=== PATIENT | female | born 1975 | race African-American/Black ===

== ENCOUNTER 2024-08-06 01:51 | Observation (INO) ==
[2024-08-06] MEDS ORDERED: ONDANSETRON HCL/PF 4 MG/2 ML VIAL ONE (02:54)
[2024-08-06] MEDS ORDERED: MORPHINE SULFATE 4 MG/ML CARTRIDGE ONE (02:54)
[2024-08-06 05:36] LABS: PH BODY FLUID EXCP BLOOD N (5 - 9); Urine Appearance CLOUDY (CLEAR); Urine Blood 3+ (NEG - TRACE); Urine Color YELLOW (STRAW/YELL.); Urine Urobilinogen Normal (NORMAL)
[2024-08-06 05:37] LABS: Ur. Squamous Epithelial Cell Many (Negative); Urine Amorphous Sediment Few (Negative)
[2024-08-06 05:38] LABS: Basophils%(Percent) Auto 0.2 (0.1-0.85); Eosinophils%(Percent) Auto 0.4 % (0.4-2.8); Granulocytes % - Auto 78.4 % (47.8-71.3); Granulocytes#(Absolute)- Auto 10.6 (2.3-6.0); Hematocrit 49.2 % (35.9-46.7); Mean Corpuscular Volume 85.4 fl (81.0-93.7); Monocytes %(Percent)- Auto 8.9 % (3.6-9.8); Platelet Count 181 K/uL (152-353); White Blood Count 13.5 K/uL (4.3-9.3)
[2024-08-06 05:39] LABS: Monocytes #(Absolute)- Auto 1.2 (1.1-3.1)
--- NOTE | 2024-08-06 06:11 | Emergency Department Note ---
HPI - Abdominal Pain General Chief Complaint: Abdominal Pain Stated Complaint: NAUSEA AND VOMITING/ DIARRHEA Time Seen by Provider: 08/06/24 02:00 Source: patient Mode of arrival: walk-in Limitations: no limitations History of Present Illness HPI narrative: 49 Y/O Female with a PMHX of HTN, Crohn's disease, Fibromyalgia, presents to the ER she reports at around 1 AM this morning for abdominal pain with N/V/D - last BM was at 0200, non bloody. Last vomiting episose, pateint states was just prior to arrival. MD elicited complaint: abdominal pain Pertinent past history: none Onset (ago): day(s) (2) Pain Consistency: constant Location: diffuse Severity: moderate Quality: cramping, aching and sharp Radiation: none Migration to: no migration Exacerbating factors: vomiting Relieving factors: nothing Associated symptoms: nausea, vomiting and diarrhea Related Data Previous Rx's Medication Instructions Recorded potassium chloride 20 mEq/15 mL 20 meq (15 mL) PO DAILY low 01/21/24 oral liquid potassium 5 days #75 mL Allergies Allergy/AdvReac Type Severity Reaction Status Date / Time No Known Drug Allergies Allergy Verified 08/06/24 05:38 Review of Systems Status of ROS 10 or more systems reviewed and unremark able except as noted in history and below Constitutional Denies: fever or chills Eyes Denies: change in vision, blurry vision or blind spots Respiratory Denies: shortness of breath, cough or wheezing Gastrointestinal Reports: abdominal pain, nausea, vomiting and diarrhea Genitourinary Denies: painful urination, urinary frequency or urinary urgency Musculoskeletal Denies: back pain Neurological Denies: headache Psychiatric Denies: anxiety [facility] Medical History Fistula of intestine, excluding rectum and anus Social History Smoking status: never smoker Within the past year, how often did you have a drink containing alcohol: never Within the past year, how many standard drinks containing alcohol did you have on a typical day: 1 or 2 Within the past year, how often did you have six or more drinks on one occasion: never Total score: 0 Score interpretation: A score less than 3 is consistent with normal alcohol consumption. Exam Constitutional: normal general appearance and alert Vital Signs - 24 hr 08/06/24 02:00 08/06/24 02:35 08/06/24 04:00 Temperature 98.2 F Pulse Rate 124 H 127 H 113 H Respiratory Rate 20 16 Blood Pressure 121/78 120/76 Pulse Oximetry 98 98 98 Oxygen Delivery Me thod Room Air Room Air Room Air 08/06/24 05:10 08/06/24 06:30 08/06/24 07:00 Temperature Pulse Rate 121 H 97 H 115 H Respiratory Rate 18 18 18 Blood Pressure 125/70 117/77 124/89 Pulse Oximetry 97 97 94 L Oxygen Delivery Me thod Room Air Room Air Room Air Eyes: PERRL and EOMs intact bilaterally Respiratory: breath sounds equal bilaterally and normal respiratory effort Cardiovascular: regular rhythm noted (Tachy) Gastrointestinal: abdomen soft to palpation hyperactive BS, tender to palpation, generalized Extremities: normal to inspection, normal to palpation, no tenderness and full ROM Neurology: gait normal, speech normal and coordination normal Psychiatry: oriented x3, cooperative and memory normal Skin: skin color normal Course Reevaluation(s) Reevaluation #1: Patient continues to report abdominal pain with nausea. Morphine 2 mg with Zofran 4 mg ordered NS 1 liter ordered Potassium is noted 3.0 - repleted, 40 meq PO and 20 mEq IV ordered Time: 06:55 Reevaluation #2: 0700 - Laurie, with hospital administration, UR called via cell phone for admis crys permission - agrees to admission 704 - Called Dr. Landaverde via cell phone number provided - OK for admission, will assume care of this patient Vital Signs Vital signs: Vital Signs Temperature 98.2 F 08/06/24 02:00 Pulse Rate 124 H 08/06/24 02:00 Respiratory Rate 20 08/06/24 02:00 Pulse Oximetry 98 08/06/24 02:00 Oxygen Delivery Method Room Air 08/06/24 02:00 Temperature 98.2 F 08/06/24 02:00 Pulse Rate 115 H 08/06/24 07:00 Respiratory Rate 18 08/06/24 07:00 Blood Pressure 124/89 08/06/24 07:00 Pulse Oximetry 94 L 08/06/24 07:00 Oxygen Delivery Method Room Air 08/06/24 07:00 MDM - Abdominal Pain Differential Diagnosis Differential diagnosis: Likely abdominal pain, gastroenteritis and other Lab Data Attestation: I reviewed the patient's lab results. Labs: Lab Results 08/06/24 Range/Units 03:20 WBC 13.5 H (4.3-9.3) K/uL RBC 5.8 H (4.00-5.50) M/uL Hgb 16.6 H (12.5-15.8) gm/dL Hct 49.2 H (35.9-46.7) % MCV 85.4 (81.0-93.7) fl MCH 28.8 (27.6-32.2) pg MCHC 33.7 (33.1-35.3) g/dl RDW 15.6 H (11.4-14.2) % Plt Count 181 (152-353) K/uL MPV 9.5 (6.9-10.8) fl Gran % 78.4 H (47.8-71.3) % Lymph % (Auto) 12.1 L (20.0-43.0) % [place] % (Auto) 8.9 (3.6-9.8) % Eos % (Auto) 0.4 (0.4-2.8) % Baso % (Auto) 0.2 (0.1-0.85) Lymph # (Auto) 1.6 (1.1-3.1) [place] # (Auto) 1.2 (1.1-3.1) Eos # (Auto) 0.0 (0.0-0.2) Baso # (Auto) 0.0 (0.0-0.1) Absolute Gran (auto) 10.6 H (2.3-6.0) Sodium 132 L (136-145) mmol/L Potassium 3.0 L (3.6-5.2) mmol/L Chloride 97.0 L (98-107) mmol/L Carbon Dioxide 25 (21-32) mmol/L Anion Gap 10.0 (4-14) mEq/L BUN 11 (7-18) mg/dL Creatinine 0.8 (0.6-1.3) mg/dL Estimated GFR 89.7 (>59.9) Glucose 133 H (70-110) mg/dL Calcium 9.2 (8.5-10.1) mg/dL Total Bilirubin 0.68 (0.0-1.0) mg/dL AST 98 H (15-37) U/L ALT 102 H (30-65) U/L Alkaline Phosphatase 74 (50-136) U/L Total Protein 8.8 H (6.4-8.2) g/dL Albumin 4.0 (3.4-5.0) g/dL Lipase 80.0 H (16.0-77.0) U/L Urine Color Yellow (STRAW/YELL.) Urine Appearance Cloudy (CLEAR) Ur Specific [place] 1.020 (1.001-1.035) Urine Protein Negative (NEGATIVE) Urine Glucose (UA) Normal (NORMAL) Urine Ketones Negative (NEGATIVE) Urine Occult Blood 3+ (NEG - TRACE) Urine Nitrite Negative (NEGATIVE) Urine Bilirubin Negative (NEGATIVE) Urine Urobilinogen Normal (NORMAL) Ur Leukocyte Esterase Negative (NEGATIVE) Urine RBC 5 - 10 (0 - 5) Urine WBC 5 - 10 ( 0 - 5) Ur Epithelial Cells Many (Few/HPF) Ur Squamous Epith Cells Many (Negative) Amorphous Sediment Few (Negative) Urine Bacteria Few (Negative) Fluid pH N (5 - 9) Imaging Data Imaging ordered: Abdominal x-ray Radiologist's impression: IMPRESSION Possible entero colitis that is probably infectious Lobulated liver suspicious for cirrhosis Ventral midline intraumbilical hernia Bilateral adnexal cysts an US recommend to exclude complex cyst needing F/U Discharge Plan Discharge Patient Disposition: Admitted As Observation Condition: Stable Clinical Impression: Crohn's disease, Colitis, infectious Time of Disposition: 07:10
[2024-08-06] MEDS ORDERED: POTASSIUM CHLORIDE IV ONE (06:22)
[2024-08-06] MEDS ORDERED: [UNRECOGNIZED DRUG - OTHER] IV ONE (06:22)
[2024-08-06] MEDS: 0.9 % SODIUM CHLORIDE 1000 ML 1,000 ML IV ONE (06:24)
[2024-08-06] MEDS: POTASSIUM CL 20 MEQ/100 ML SOL 20 MEQ/100 ML PIGGYBACK IV ONE (06:25)
[2024-08-06] MEDS: ONDANSETRON HCL/PF 4 MG/2 ML VIAL IVP ONE (06:53)
[2024-08-06] MEDS: MORPHINE SULFATE 2 MG/ML CARTRIDGE IV ONE (06:54)
[2024-08-06] MEDS: PIPERACILLIN/TAZOBACTAM 3.375 3.375 GM in 0.9 % SODIUM CHLORIDE MB+ 100 ML IV SCH (07:15)
[2024-08-06] MEDS ORDERED: PIPERACILLIN SODIUM/TAZOBACTAM 3.375 GM VIAL IV ONE (07:15)
[2024-08-06] MEDS ORDERED: 0.9 % SODIUM CHLORIDE MB+ 100 ML IV ONE (07:15)
[2024-08-06] MEDS: 0.9 % SODIUM CHLORIDE 1000 ML 1,000 ML IV SCH (09:21)
[2024-08-06] MEDS: POTASSIUM CL 40 MEQ/30 ML 40 MEQ/30 ML LIQUID PO SCH (09:21)
--- NOTE | 2024-08-06 11:45 | History & Physical Report ---
H&P: HPI History of Present Illness Chief complaint: colitis Narrative: 49 Y/O Female with a PMHX of HTN, Crohn's disease, Fibromyalgia, presented to the ER for abdominal pain with N/V/D - last BM was at 0200, non bloody. Last vomiting episode, patient states was just prior to arrival. Tested found patient to have colitis and in need of further treatment than ED could provide. Patient was admitted for pain control, IV antibiotics, and IV medications for nausea, IV fluids, and further testing. Review of Systems Status of ROS 10 or more systems reviewed and unremark able except as noted in history and below Constitutional Denies: fever or chills Eyes Denies: change in vision, blurry vision or blind spots Cardiovascular Denies: shortness of breath with exertion Respiratory Denies: shortness of breath, cough or wheezing Gastrointestinal Reports: abdominal pain, nausea, vomiting and diarrhea Genitourinary Denies: painful urination, urinary frequency or urinary urgency Musculoskeletal Denies: back pain Neurological Denies: headache Psychiatric Denies: anxiety Allergic/Immunologic Denies: wheezing PFSH PFSH Medical History Fistula of intestine, excluding rectum and anus Social History Smoking status: never smoker Within the past year, how often did you have a drink containing alcohol: never Within the past year, how many standard drinks containing alcohol did you have on a typical day: 1 or 2 Within the past year, how often did you have six or more drinks on one occasion: never Total score: 0 Score interpretation: A score less than 3 is consistent with normal alcohol consumption. Meds Home Medications and Allergies Home Medications Medication Instructions Recorded Confirmed Type potassium chloride 20 mEq/15 mL 20 meq (15 mL) PO DAILY low 01/21/24 Rx oral liquid potassium 5 days #75 mL Allergies Allergy/AdvReac Type Severity Reaction Status Date / Time No Known Drug Allergies Allergy Verified 08/06/24 05:38 Exam Constitutional: normal general appearance, no apparent distress, abnormal body habitus, no limitations and alert Vital Signs - 24 hr 08/06/24 02:00 08/06/24 02:35 08/06/24 04:00 Temperature 98.2 F Pulse Rate 124 H 127 H 113 H Respiratory Rate 20 16 Blood Pressure 121/78 120/76 Pulse Oximetry 98 98 98 Oxygen Delivery Me thod Room Air Room Air Room Air 08/06/24 05:10 08/06/24 06:30 08/06/24 07:00 Temperature Pulse Rate 121 H 97 H 115 H Respiratory Rate 18 18 18 Blood Pressure 125/70 117/77 124/89 Pulse Oximetry 97 97 94 L Oxygen Delivery Ne thod Room Air Room Air Room Air 08/06/24 08:00 Temperature 98.6 F Pulse Rate 111 H Respiratory Rate 16 Blood Pressure 134/78 Pulse Oximetry 94 L Oxygen Delivery Ne thod HENMT: normocephalic, head/scalp atraumatic, hearing grossly normal bilaterally, external ears normal, EACs normal, TMs normal bilaterally, nasal mucous membranes normal, external nose normal, oral mucous membranes normal and oropharynx normal Eyes: PERRL, EOMs intact bilaterally, conjunctivae normal, no scleral icterus and no papilledema Chest: inspection of chest normal Respiratory: breath sounds equal bilaterally, normal respiratory effort, clear to auscultation bilaterally, no wheezes and no rales Cardiovascular: normal heart rate noted, regular rhythm noted, no gallop, no rub, no murmur, no JVD and no clicks Gastrointestinal: abdomen normal to inspection, abdomen soft to palpation, tender to palpation, nondistended and abnormal bowel sounds noted (hyperactive bowel sounds) Genitourinary: no CVA tenderness Extremities: normal to inspection, normal to palpation, no tenderness and full ROM Neurology: no movement abnormality noted, no focal motor deficit noted, deep tendon reflexes 2+ bilaterally, gait normal and speech normal Psychiatry: mental status grossly normal, oriented x3, thought process normal and cooperative Skin: skin color normal, no rash, no lesions, no ecchymosis noted and no wounds Assessment and Plan Assessment and Plan (1) Colitis: Code(s): K52.9 - Noninfective gastroenteritis and colitis, unspecified (2) Crohn's disease: Code(s): K50.90 - Crohn's disease, unspecified, without complications (3) Abdominal pain: Code(s): R10.9 - Unspecified abdominal pain (4) Nausea: Code(s): R11.0 - Nausea (5) Hypokalemia: Code(s): E87.6 - Hypokalemia (6) Fibromyalgia: Code(s): M79.7 - Fibromyalgia (7) Hypertension: Code(s): I10 - Essential (primary) hypertension Plan NS @ 125ml/hr Zosyn IV Q 6 Potassium 20 meq daily MS for pain Zofran for nausea Bowel rest unless patient gets really hungry then may try clear liquids Stool Cultures Results Labs Labs: CBC WBC 13.5 K/uL (4.3-9.3) H 08/06/24 03:20 RBC 5.8 M/uL (4.00-5.50) H 08/06/24 03:20 Hgb 16.6 gm/dL (12.5-15.8) H 08/06/24 03:20 Hct 49.2 % (35.9-46.7) H 08/06/24 03:20 MCV 85.4 fl (81.0-93.7) 08/06/24 03:20 MCH 28.8 pg (27.6-32.2) 08/06/24 03:20 MCHC 33.7 g/dl (33.1-35.3) 08/06/24 03:20 RDW 15.6 % (11.4-14.2) H 08/06/24 03:20 Plt Count 181 K/uL (152-353) 08/06/24 03:20 MPV 9.5 fl (6.9-10.8) 08/06/24 03:20 Gran % 78.4 % (47.8-71.3) H 08/06/24 03:20 Lymph % (Auto) 12.1 % (20.0-43.0) L 08/06/24 03:20 [place] % (Auto) 8.9 % (3.6-9.8) 08/06/24 03:20 Eos % (Auto) 0.4 % (0.4-2.8) 08/06/24 03:20 Baso % (Auto) 0.2 (0.1-0.85) 08/06/24 03:20 Lymph # (Auto) 1.6 (1.1-3.1) 08/06/24 03:20 [place] # (Auto) 1.2 (1.1-3.1) 08/06/24 03:20 Eos # (Auto) 0.0 (0.0-0.2) 08/06/24 03:20 Baso # (Auto) 0.0 (0.0-0.1) 08/06/24 03:20 Absolute Gran (auto) 10.6 (2.3-6.0) H 08/06/24 03:20 BMP Sodium 132 mmol/L (136-145) L 08/06/24 03:20 Potassium 3.0 mmol/L (3.6-5.2) L 08/06/24 03:20 Chloride 97.0 mmol/L (98-107) L 08/06/24 03:20 Carbon Dioxide 25 mmol/L (21-32) 08/06/24 03:20 Anion Gap 10.0 mEq/L (4-14) 08/06/24 03:20 BUN 11 mg/dL (7-18) 08/06/24 03:20 Creatinine 0.8 mg/dL (0.6-1.3) 08/06/24 03:20 Estimated GFR 89.7 (>59.9) 08/06/24 03:20 Glucose 133 mg/dL (70-110) H 08/06/24 03:20 Calcium 9.2 mg/dL (8.5-10.1) 08/06/24 03:20 Total Bilirubin 0.68 mg/dL (0.0-1.0) 08/06/24 03:20 AST 98 U/L (15-37) H 08/06/24 03:20 ALT 102 U/L (30-65) H 08/06/24 03:20 Alkaline Phosphatase 74 U/L (50-136) 08/06/24 03:20 Total Protein 8.8 g/dL (6.4-8.2) H 08/06/24 03:20 Albumin 4.0 g/dL (3.4-5.0) 08/06/24 03:20 Liver Function Total Bilirubin 0.68 mg/dL (0.0-1.0) 08/06/24 03:20 AST 98 U/L (15-37) H 08/06/24 03:20 ALT 102 U/L (30-65) H 08/06/24 03:20 Alkaline Phosphatase 74 U/L (50-136) 08/06/24 03:20 Total Protein 8.8 g/dL (6.4-8.2) H 08/06/24 03:20 Albumin 4.0 g/dL (3.4-5.0) 08/06/24 03:20 Urine Urine Color Yellow (STRAW/YELL.) 08/06/24 03:20 Urine Appearance Cloudy (CLEAR) 08/06/24 03:20 Ur Specific [place] 1.020 (1.001-1.035) 08/06/24 03:20 Urine Protein Negative (NEGATIVE) 08/06/24 03:20 Urine Glucose (UA) Normal (NORMAL) 08/06/24 03:20 Urine Ketones Negative (NEGATIVE) 08/06/24 03:20 Urine Occult Blood 3+ (NEG - TRACE) 08/06/24 03:20 Urine Nitrite Negative (NEGATIVE) 08/06/24 03:20 Urine Bilirubin Negative (NEGATIVE) 08/06/24 03:20 Urine Urobilinogen Normal (NORMAL) 08/06/24 03:20 Ur Leukocyte Esterase Negative (NEGATIVE) 08/06/24 03:20
[2024-08-06] MEDS: MORPHINE SULFATE 2 MG/ML CARTRIDGE IV PRN (12:13)
[2024-08-06] MEDS ORDERED: PROMETHAZINE HCL 12.5 MG in 0.9 % SODIUM CHLORIDE 50 ML IV PRN (20:25)
[2024-08-06] MEDS: ONDANSETRON HCL/PF 4 MG/2 ML VIAL IVP PRN (20:45)
[2024-08-07] MEDS ORDERED: CYCLOBENZAPRINE HCL 10 MG TABLET PO PRN (10:09)
[2024-08-07] MEDS ORDERED: lisinopriL 10 MG TABLET PO SCH (10:15)
[2024-08-07 10:50] LABS: Basophils%(Percent) Auto 0.5 (0.1-0.85); Eosinophils#(Absolute)Auto 0.1 (0.0-0.2); Granulocytes % - Auto 41.2 % (47.8-71.3); Granulocytes#(Absolute)- Auto 3.5 (2.3-6.0); Hematocrit 39.9 % (35.9-46.7); Mean Corpuscular Volume 88.6 fl (81.0-93.7); Monocytes #(Absolute)- Auto 0.5 (1.1-3.1); Monocytes %(Percent)- Auto 6.3 % (3.6-9.8); Platelet Count 124 K/uL (152-353); White Blood Count 8.4 K/uL (4.3-9.3)
[2024-08-07 10:59] LABS: Potassium 3.6 mmol/L (3.6-5.2)
[2024-08-07] MEDS: GABAPENTIN 300 MG CAPSULE PO SCH (11:11)
[2024-08-07] MEDS: hydroCHLOROthiazide 25 MG TABLET PO SCH (11:12)
[2024-08-07] MEDS: lisinopriL 10 MG TABLET PO SCH (11:12)
--- NOTE | 2024-08-07 12:37 | Progress Note ---
Progress Note: Subjective Subjective Interval history: Patient was lying in bed upon rounds this morning. No overnight events reported. Patient reports that pain medication is numbing the pain but does not get rid of it. She did have several bowel movements of diarrhea yesterday and nursing was able to collect the stool studies. Exam Constitutional: normal general appearance, no apparent distress and alert Vital Signs - 24 hr 08/06/24 16:00 08/06/24 20:00 08/07/24 00:00 Temperature 98.4 F 98.1 F 98.2 F Pulse Rate [Left C arotid] 100 H 98 H 91 H Respiratory Rate 20 17 17 Blood Pressure [Ri ght Arm] 125/68 119/77 124/70 Pulse Oximetry 97 96 97 Oxygen Delivery Me thod Room Air Room Air Room Air 08/07/24 04:00 08/07/24 07:28 08/07/24 12:00 Temperature 98.4 F 97.7 F 97.7 F Pulse Rate [Left C arotid] 89 85 86 Respiratory Rate 17 20 20 Blood Pressure [Ri ght Arm] 136/75 122/88 127/66 Pulse Oximetry 96 95 96 Oxygen Delivery Me thod Room Air Room Air Room Air HENMT: normocephalic, head/scalp atraumatic, hearing grossly normal bilaterally, external ears normal, EACs normal, TMs normal bilaterally, nasal mucous membranes normal, external nose normal, oral mucous membranes normal and oropharynx normal Eyes: PERRL, EOMs intact bilaterally and conjunctivae normal Chest: inspection of chest normal Respiratory: breath sounds equal bilaterally, normal respiratory effort, clear to auscultation bilaterally, no wheezes and no rales Cardiovascular: normal heart rate noted, regular rhythm noted, no gallop and no rub Gastrointestinal: abdomen normal to inspection, abdomen soft to palpation, tender to palpation, tender to percussion, nondistended and abnormal bowel sounds noted Genitourinary: no CVA tenderness Extremities: normal to inspection, normal to palpation, no tenderness and full ROM Neurology: no movement abnormality noted, no focal motor deficit noted, speech normal and coordination normal Psychiatry: mental status grossly normal, oriented x3, thought process normal and cooperative Skin: skin color normal, no rash, no lesions, no ecchymosis noted, no wounds and no lacerations Progress Note: Objective Labs Labs: CBC WBC 8.4 K/uL (4.3-9.3) 08/07/24 10:43 RBC 4.5 M/uL (4.00-5.50) 08/07/24 10:43 Hgb 13.1 gm/dL (12.5-15.8) 08/07/24 10:43 Hct 39.9 % (35.9-46.7) 08/07/24 10:43 MCV 88.6 fl (81.0-93.7) 08/07/24 10:43 MCH 29.2 pg (27.6-32.2) 08/07/24 10:43 MCHC 32.9 g/dl (33.1-35.3) L 08/07/24 10:43 RDW 15.0 % (11.4-14.2) H 08/07/24 10:43 Plt Count 124 K/uL (152-353) L 08/07/24 10:43 MPV 9.2 fl (6.9-10.8) 08/07/24 10:43 Gran % 41.2 % (47.8-71.3) L 08/07/24 10:43 Lymph % (Auto) 51.0 % (20.0-43.0) H 08/07/24 10:43 [place] % (Auto) 6.3 % (3.6-9.8) 08/07/24 10:43 Eos % (Auto) 1.0 % (0.4-2.8) 08/07/24 10:43 Baso % (Auto) 0.5 (0.1-0.85) 08/07/24 10:43 Lymph # (Auto) 4.3 (1.1-3.1) H 08/07/24 10:43 [place] # (Auto) 0.5 (1.1-3.1) L 08/07/24 10:43 Eos # (Auto) 0.1 (0.0-0.2) 08/07/24 10:43 Baso # (Auto) 0.0 (0.0-0.1) 08/07/24 10:43 Absolute Gran (auto) 3.5 (2.3-6.0) 08/07/24 10:43 BMP Sodium 135 mmol/L (136-145) L 08/07/24 10:43 Potassium 3.6 mmol/L (3.6-5.2) 08/07/24 10:43 Chloride 103.0 mmol/L (98-107) 08/07/24 10:43 Carbon Dioxide 25 mmol/L (21-32) 08/07/24 10:43 Anion Gap 7.0 mEq/L (4-14) 08/07/24 10:43 BUN 11 mg/dL (7-18) 08/07/24 10:43 Creatinine 0.8 mg/dL (0.6-1.3) 08/07/24 10:43 Estimated GFR 89.7 (>59.9) 08/07/24 10:43 Glucose 78 mg/dL (70-110) 08/07/24 10:43 Calcium 7.0 mg/dL (8.5-10.1) L 08/07/24 10:43 Total Bilirubin 0.63 mg/dL (0.0-1.0) 08/07/24 10:43 AST 68 U/L (15-37) H 08/07/24 10:43 ALT 75 U/L (30-65) H 08/07/24 10:43 Alkaline Phosphatase 53 U/L (50-136) 08/07/24 10:43 Total Protein 7.1 g/dL (6.4-8.2) 08/07/24 10:43 Albumin 3.1 g/dL (3.4-5.0) L 08/07/24 10:43 Liver Function Total Bilirubin 0.63 mg/dL (0.0-1.0) 08/07/24 10:43 AST 68 U/L (15-37) H 08/07/24 10:43 ALT 75 U/L (30-65) H 08/07/24 10:43 Alkaline Phosphatase 53 U/L (50-136) 08/07/24 10:43 Total Protein 7.1 g/dL (6.4-8.2) 08/07/24 10:43 Albumin 3.1 g/dL (3.4-5.0) L 08/07/24 10:43 Urine Urine Color Yellow (STRAW/YELL.) 08/06/24 03:20 Urine Appearance Cloudy (CLEAR) 08/06/24 03:20 Ur Specific [place] 1.020 (1.001-1.035) 08/06/24 03:20 Urine Protein Negative (NEGATIVE) 08/06/24 03:20 Urine Glucose (UA) Normal (NORMAL) 08/06/24 03:20 Urine Ketones Negative (NEGATIVE) 08/06/24 03:20 Urine Occult Blood 3+ (NEG - TRACE) 08/06/24 03:20 Urine Nitrite Negative (NEGATIVE) 08/06/24 03:20 Urine Bilirubin Negative (NEGATIVE) 08/06/24 03:20 Urine Urobilinogen Normal (NORMAL) 08/06/24 03:20 Ur Leukocyte Esterase Negative (NEGATIVE) 08/06/24 03:20 Progress Note: A&P Assessment and Plan (1) Colitis: (2) Crohn's disease: (3) Abdominal pain: (4) Nausea: (5) Hypokalemia: (6) Fibromyalgia: (7) Hypertension: Plan NS @ 125ml/hr Zosyn IV Q 6 Potassium 20 meq daily MS for pain Zofran for nausea Advance as tolerated (Clear liquids for lunch) Stool Cultures-follow (collected yesterday) Fall Risk Details Vázquez Fall Scale Risk Level: Moderate Fall Risk Current Medications: Current Medications Cyclobenzaprine HCl (Cyclobenzaprine Hcl 10 Mg Tablet) 10 mg PO Q12H PRN PRN Reason: pain Gabapentin (Gabapentin 300 Mg Capsule) 300 mg PO .COMPLEX [facility] Last Admin: 08/07/24 11:11 Dose: 300 mg Hydrochlorothiazide (Hydrochlorothiazide 25 Mg Tablet) 12.5 mg PO DAILY [facility] Last Admin: 08/07/24 11:12 Dose: 12.5 mg Piperacillin Sod/Tazobactam (Sod 3.375 gm/ Sodium Chloride) 100 mls @ 200 mls/hr IV Q6H [facility] Last Infusion: 08/07/24 07:54 Dose: Infused Sodium Chloride (Sodium Chloride) 1,000 mls @ 125 mls/hr IV CONT [facility] Last Admin: 08/07/24 03:13 Dose: 125 mls/hr Promethazine HCl 12.5 mg/ (Sodium Chloride) 50.5 mls @ 200 mls/hr IV Q8H PRN PRN Reason: Nausea And Vomiting Lisinopril (Lisinopril 10 Mg Tablet) 10 mg PO NIGHTLY [facility] Lisinopril (Lisinopril 10 Mg Tablet) 10 mg PO DAILY [facility] Last Admin: 08/07/24 11:12 Dose: 10 mg Morphine Sulfate (Morphine Sulfate 2 Mg/Ml Cartridge) 1 mg IV Q4H PRN PRN Reason: abdominal pain Last Admin: 08/07/24 11:11 Dose: 1 mg Ondansetron HCl (Ondansetron Hcl/Pf 4 Mg/2 Ml Vial) 4 mg IVP Q6H PRN PRN Reason: Nausea And Vomiting Last Admin: 08/07/24 03:14 Dose: 4 mg Potassium Chloride (Potassium Cl 40 Meq/30 Ml 40 Meq/30 Ml Liquid) 20 meq PO DAILY [facility] Last Admin: 08/07/24 08:33 Dose: 20 meq Time Spent With Patient Time: Total time spent is greater than 50% in coordination of care (as documented) at patient's floor/unit and/or counseling patient:
[2024-08-07] MEDS: LISINOPRIL HYDROCHLOROTHIAZIDE PO SCH (13:45)
[2024-08-08 05:05] LABS: Basophils%(Percent) Auto 0.6 (0.1-0.85); Eosinophils#(Absolute)Auto 0.1 (0.0-0.2); Eosinophils%(Percent) Auto 1.4 % (0.4-2.8); Granulocytes % - Auto 35.5 % (47.8-71.3); Granulocytes#(Absolute)- Auto 2.7 (2.3-6.0); Hematocrit 38.6 % (35.9-46.7); Mean Corpuscular Volume 88.3 fl (81.0-93.7); Monocytes #(Absolute)- Auto 0.6 (1.1-3.1); Monocytes %(Percent)- Auto 7.4 % (3.6-9.8); Platelet Count 115 K/uL (152-353); White Blood Count 7.5 K/uL (4.3-9.3)
[2024-08-08 05:40] LABS: Potassium 2.8 mmol/L (3.6-5.2)
[2024-08-08] MEDS ORDERED: POTASSIUM CHLORIDE IN WATER 10 MEQ/100 ML PIGGYBACK IV SCH (09:45)
[2024-08-08] MEDS: POTASSIUM CHLORIDE 20 MEQ in 0.9 % SODIUM CHLORIDE 250 ML IV ONE (10:13)
[2024-08-08] MEDS: POTASSIUM CHLORIDE 20 MEQ TAB.ER.PRT PO ONE ×2 (10:13→13:05)
[2024-08-08] MEDS: lisinopriL 20 MG TABLET PO SCH (10:13)
[2024-08-08] MEDS: metroNIDAZOLE 250 MG TABLET PO SCH (12:05)
[2024-08-08 12:16] VITALS: BP 142/82; PULSE 89; RESP 19; TEMP 98.2
[2024-08-08] MEDS: MAGNESIUM OXIDE 400 MG TABLET PO ONE (13:04)
--- NOTE | 2024-08-08 15:13 | Discharge Summary ---
DS: Providers Provider Date of admission: 08/06/24 07:16 Primary care physician: Laquita Green DO Admitting clinician: Deepthi Piña Attending physician on admission: CARROL GARCIA Attending physician on discharge: Laquita Green Discharging clinician: Laquita Green Anticipated date of discharge: 08/08/24 DS: Diagnosis Discharge Diagnosis (1) Colitis: (2) Crohn's disease: Qualifiers: Gastrointestinal tract location: unspecified location Digestive disease complication type: unspecified complication Qualified Code(s): K50.919 - Crohn 's disease, unspecified, with unspecified complications (3) Abdominal pain: Qualifiers: Abdominal location: lower abdomen, unspecified Qualified Code(s): R10.30 - Lower abdominal pain, unspecified (4) Nausea: (5) Hypokalemia: (6) Fibromyalgia: (7) Hypertension: Qualifiers: Hypertension type: primary hypertension Qualified Code(s): I10 - Essential (primary) hypertension Plan Discharge home for self care. DS: Summary Hospital Course Hospital Course: 49 Y/O Female with a PMHX of HTN, Crohn's disease, Fibromyalgia, presented to the ER for abdominal pain with N/V/D - last BM was at 0200, non bloody. Last vomiting episode, patient states was just prior to arrival. Tested found patient to have colitis and in need of further treatment than ED could provide. Patient was admitted for pain control, IV antibiotics, and IV medications for nausea, IV fluids, and further testing. Day one of hospital stay, patient reports pain medication is numbing the pain but does not get rid of it. She has had several bowel movements of diarrhea since yesterday. Stool cultures were able to be ran from sample. Patient has not vomited since admission to med/surg. Day two of hospital stay, patient states she is feeling better today. Patient has not experienced loose stool since previous day. Patient has tolerated solid food and PO meds well and is now ready to discharge home for self care. Patient is to follow up with GI specialist, PCP in 2-3 days of discharge. Provider recommends patient to increase water intake, avoid spicy foods, medication, and foods that upset her stomach. Recommend repeat BMP, Mag, and Phos with follow up for PCP. Patient is to keep a BP journal to give PCP upon follow up appointment. Status at Discharge Functional status at discharge: independent ambulation Overall status at discharge: patient is back to baseline Time Spent with Patient Time attestation: Total time spent providing and/or coordinating discharge services: Time spent: greater than 30 minutes Exam Exam: Patient in nails's position in positive disposition upon encounter for exam. Constitutional: normal general appearance, no apparent distress, abnormal body habitus, no limitations and alert Vital Signs - 24 hr 08/07/24 16:00 08/07/24 19:57 08/08/24 00:00 Temperature 98.5 F 98.6 F 98.1 F Pulse Rate [Left C arotid] 84 90 85 Respiratory Rate 20 17 16 Blood Pressure Blood Pressure [Ri ght Arm] 126/85 137/76 115/68 Pulse Oximetry 98 98 95 Oxygen Delivery Me thod Room Air Room Air Room Air 08/08/24 04:00 08/08/24 08:00 08/08/24 10:13 Temperature 97.9 F 98.4 F Pulse Rate [Left C arotid] 88 76 Respiratory Rate 18 18 Blood Pressure 129/82 Blood Pressure [Ri ght Arm] 127/70 129/82 Pulse Oximetry 95 96 Oxygen Delivery Me thod Room Air Room Air 08/08/24 12:00 Temperature 98.2 F Pulse Rate [Left C arotid] 89 Respiratory Rate 19 Blood Pressure Blood Pressure [Ri ght Arm] 142/82 Pulse Oximetry 97 Oxygen Delivery Me thod Nasal Cannula HENMT: normocephalic, head/scalp atraumatic, hearing grossly normal bilaterally, external ears normal, EACs normal, TMs normal bilaterally, nasal mucous membranes normal, external nose normal, oral mucous membranes normal and oropharynx normal Eyes: PERRL, EOMs intact bilaterally, conjunctivae normal, no scleral icterus and no papilledema Neck/C-Spine: trachea midline Lymph: no lymphadenopathy noted and no lymphedema noted Chest: inspection of chest normal Respiratory: breath sounds equal bilaterally, normal respiratory effort, clear to auscultation bilaterally, no wheezes and no rales Cardiovascular: normal heart rate noted, regular rhythm noted, no gallop, no rub, no murmur, no JVD and no clicks Gastrointestinal: abdomen normal to inspection, abdomen soft to palpation, nontender to palpation, nontender to percussion, nondistended and normoactive bowel sounds hyperactive BS, tender to palpation, generalized Genitourinary: no CVA tenderness Back/Pelvis: spine normal to inspection, no thoracic spine tenderness, no lumbar spine tenderness, thoracic spine ROM normal and lumbar spine ROM normal Extremities: normal to inspection, normal to palpation, no tenderness and full ROM Neurology: no movement abnormality noted, no focal motor deficit noted, deep tendon reflexes 2+ bilaterally, gait normal, speech normal and coordination normal Psychiatry: mental status grossly normal, oriented x3, thought process normal, cooperative and memory normal Skin: skin color normal, no rash, no lesions, no ecchymosis noted, no wounds and no lacerations DS: Data Data Completed and Pending Labs on day of discharge: Labs from last 24 hours 08/08/24 05:00 WBC 7.5 RBC 4.4 Hgb 12.7 Hct 38.6 MCV 88.3 MCH 29.2 MCHC 33.0 L RDW 14.7 H Plt Count 115 L MPV 9.5 Gran % 35.5 L Lymph % (Auto) 55.1 H [place] % (Auto) 7.4 Eos % (Auto) 1.4 Baso % (Auto) 0.6 Lymph # (Auto) 4.1 H [place] # (Auto) 0.6 L Eos # (Auto) 0.1 Baso # (Auto) 0.0 Absolute Gran (auto) 2.7 Sodium 132 L Potassium 2.8 L Chloride 99.0 Carbon Dioxide 27 Anion Gap 6.0 BUN 4 L Creatinine 0.7 Estimated GFR 105.3 Glucose 80 Calcium 7.0 L Phosphorus 2.8 Magnesium 1.6 L Total Bilirubin 0.66 AST 88 H ALT 80 H Alkaline Phosphatase 52 Total Protein 7.1 Albumin 3.1 L Preliminary micro results at discharge 08/06/24 20:12 Stool Culture - Preliminary Stool - Soft Imaging CT scan - abdomen: Radiologist's impression: CT Abdomen and Pelvis with IV Contrast. HISTORY: Lower Abdominal pain, lower back pain, nausea and vomiting; . TECHNIQUE: Axial images were performed through the abdomen and pelvis with the administration of IV contrast with multiplanar reformations . Oral contrast was notadministered . Dose reduction techniques including Automated Exposure Control (AEC) and adjustment of mA and kV were utilized .. COMPARISON: None. TECHNICAL QUALITY: Satisfactory. FINDINGS: Clear lung bases. Irregular liver contour may represent cirrhosis. Spleen, adrenals, and pancreas show no abnormality. Kidneys show normal enhancement with no mass or obstruction. Previous cholecystectomy. No ascites or pneumoperitoneum. Normal aorta. No lymphadenopathy. Some prominent mucosa involving large and small bowel may represent entero colitis with fluid in the lumen. No bowel obstruction. Appendix is not visualized. Infraumbilical midline ventral hernia present involving small bowel loops measuring 10 cm with no obstruction. Pelvis shows 3.5 cm left and 3.3 cm right adnexal cysts no free fluid. Normal urinary bladder. No acute bony abnormality. IMPRESSION: 1. Possible entero colitis that is probably infectious. 2. Lobulated liver suspicious for cirrhosis. 3. Ventral midline infraumbilical hernia. 4. Bilateral adnexal cysts an ultrasound recommended to exclude complex cyst needing follow-up in this age patient. Discharge Plan Discharge Disposition: Home, Self-Care Condition: Improved Discharge Medications: New ciprofloxacin HCl 500 mg Tablet 500 mg PO BID Qty: 14 0RF lisinopril 20 mg Tablet 20 mg PO Q12H Qty: 60 0RF metronidazole 250 mg Tablet 500 mg PO Q8H Qty: 21 0RF potassium chloride 20 mEq packet 20 meq PO DAILY Qty: 5 0RF ondansetron 8 mg tablet,disintegrating 8 mg PO Q8H PRN (Reason: nausea and vomiting) Qty: 10 0RF Continued cyclobenzaprine 10 mg tablet 10 mg PO Q12H PRN (Reason: pain) Patient Comments: TAKE 1 TO 2 TABLETS BY MOUTH ONCE DAILY NEEDED gabapentin 300 mg capsule 300 mg PO .COMPLEX Patient Comments: TAKE 1 CAPSULE BY MOUTH IN THE MORNING, THEN 1 CAPSULE AT NOON THEN 2 CAPSULES AT BEDTIME Rx Instructions: 300 mg orally 1 tab morning, 1 tab noon,2 tab at night tramadol 50 mg tablet 50 mg PO TID PRN (Reason: pain) Patient Comments: TAKE 1 TABLET BY MOUTH THREE TIMES DAILY NEEDED Discontinued lisinopril 10 mg tablet 10 mg PO NIGHTLY lisinopril-hydrochlorothiazide 10-12.5 mg tablet 1 tab PO DAILY Discharge Orders: Discharge Order (Routine); Ordered 08/08/24 Ordered By: Laquita Green Activity: increase activity as tolerated Diet: low fat, low cholesterol and other Diet Detail: BRAT diet Interventions: MED/SURG & ICU Observation Charge Sheet Last Done: 08/08/24 06:30 Patient Instructions: Urinary Tract Infection in Women (DC), Colitis (ED) Activity Restrictions/Additional Instructions: follow up GI medicine for further diagnosis and treatment and decide if chrons an issue or not follow up PCP in 2-3 days and increase water intake and avoid spicy foods and medications and foods that upset her stomach needs BMP, mag, and phos repeated on day of follow up avoid tub bathes and discussed sex and toileting hygiene in great detail with patient to help avoid future UTI's and to find diet and medications to keep bowels regular BP journal to go to the doctors appointment with the patient as she should avoid HCTZ at this time and may need to add to the lisinopril dosage the patient is currently taking Forms: Portal/Health Info Access Inst Follow-Ups: Laquita Green DO [Primary Care Provider] -
[2024-08-08] MEDS ORDERED: CIPROFLOXACIN HCL 500 MG TABLET PO SCH (21:00)
== END 2024-08-08 14:35 | disposition home or self-care (01) ==
LOC: ED 01:51 → MS 01:51
PROVIDERS: ADMIT Family Medicine; ATTEND Family Medicine
DX: M79.7 Fibromyalgia; R10.30 Lower abdominal pain, unspecified; K52.89 Other specified noninfective gastroenteritis and colitis; K50.919 Crohn's disease, unspecified, with unspecified complications; R11.0 Nausea; I10 Essential (primary) hypertension; R11.2 Nausea with vomiting, unspecified; R19.7 Diarrhea, unspecified; E87.6 Hypokalemia